=== PATIENT | male | born 1960 | race Caucasian/White ===

== ENCOUNTER 2016-12-27 06:01 | Day surgery (SDC) | payer OTHER ==
[~2016-12-27] VITALS: Ht 165.1 cm; Wt 74.8 kg
[2016-12-27 06:48] LABS: BASOPHILS # (AUTO) 0.3 K/uL (0.00-0.22); BASOPHILS % (AUTO) 4.4 % (0.0-2.0); EOSINOPHILS # (AUTO) 0.2 K/uL (0-0.4); EOSINOPHILS % (AUTO) 3.7 % (0.0-4.0); HEMATOCRIT 48.6 % (36-52); HEMOGLOBIN 16.4 g/dL (12.0-18.0); LYMPHOCYTES # (AUTO) 1.3 K/uL (2.0-11.5); LYMPHOCYTES % (AUTO) 23.4 % (20.5-51.1); MEAN CORPUSCULAR HEMOGLOBIN 33 pg (27-31); MEAN CORPUSCULAR HGB CONC 34 g/dL (33-37); MEAN CORPUSCULAR VOLUME 99 fL (80-94); MONOCYTES # (AUTO) 0.9 K/uL (0.8-1.0); MONOCYTES % (AUTO) 15.7 % (1.7-9.3); NEUTROPHILS % (AUTO) 52.8 % (42.2-75.2); PLATELET COUNT (AUTO) 143 K/uL (140-450); RED BLOOD CELL COUNT(AUTO) 4.93 MIL/uL (4.20-6.10); RED CELL DISTRIBUTION WIDTH 12.5 % (11.6-13.7); WHITE BLOOD COUNT (AUTO) 5.7 K/uL (4.8-10.8)
[2016-12-27 07:10] LABS: PROTHROMBIN TIME 10.6 secs (10.8-13.4)
[2016-12-27] MEDS ORDERED: LIDOCAINE 2% 1000 MG/50 ML VIAL INJ ONE (07:39)
[2016-12-27] MEDS ORDERED: fentaNYL 0.05 MG/ML VIAL ONE ×2 (07:57)
[2016-12-27] MEDS ORDERED: MIDAZOLAM 2 MG/2 ML VIAL ONE (07:58)
[2016-12-27] MEDS ORDERED: OMEP20TC12 PO (08:10)
[2016-12-27] MEDS ORDERED: SYN.05 PO (08:10)
[2016-12-27] MEDS ORDERED: IBUP-2213 PO (08:10)
== END 2016-12-27 09:30 | disposition home or self-care (01) ==
LOC: MDS 06:01 → MMU 06:05 → MDS 09:30
PROVIDERS: ATTEND Internal Medicine Gastroenterology
DX: B19.20 Unspecified viral hepatitis C without hepatic coma (principal); E66.3 Overweight; K21.9 Gastro-esophageal reflux disease without esophagitis; Z98.890 Other specified postprocedural states; Z87.891 Personal history of nicotine dependence; Z79.899 Other long term (current) drug therapy
CPT/HCPCS: 36415; 47000; 76705; 85025; 85610; 85730; 88307; 88313; J2001; Q0092; J2250; J3010